=== PATIENT | male | born 1975 | race Caucasian/White ===

== ENCOUNTER 2017-11-07 08:38 | Emergency (ER) | payer MEDICARE, OTHER ==
[~2017-11-07] VITALS: Ht 175.3 cm; Wt 76.2 kg
--- NOTE | 2017-11-07 08:45 | NUR ---
[id number]: SOB, ASTHMA EXACERBATION. ALBUTROL x 1 GIVEN IN FIELD WITH HELP. AAOX3 AND ABLE TO SPEAK 4-5 WORD SENTENCES. PT STATES HE RAN OUT OF HIS NEBULIZER LAST NIGHT. SPO2 87% ON ROOM AIR, RT CALLED FOR BREATHING TREATMENT. MD AT BEDSIDE. NAD NOTED AT THIS TIME. PT PLACED ON MONITOR AND WILL CONTINUOUSLY MONITOR.
[2017-11-07] MEDS ORDERED: methylPREDNISolone SOD SUCC 125 MG/2ML VIAL ONE (08:52)
[2017-11-07] MEDS ORDERED: ALBUTEROL FS 2.5 MG/0.5 ML VIAL.NEB ONE (08:55)
[2017-11-07] MEDS ORDERED: IPRATROPIUM NEB FS 0.5 MG/2.5 ML AMPUL.NEB NEB ONE ×2 (09:00→09:30)
[2017-11-07] MEDS ORDERED: methylPREDNISolone SOD SUCC 125 MG/2ML VIAL IV ONE (09:00)
[2017-11-07] MEDS ORDERED: ALBUTEROL FS 2.5 MG/3 ML VIAL.NEB CONTNEB ONE (09:00)
[2017-11-07] MEDS ORDERED: IPRATROPIUM NEB FS 0.5 MG/2.5 ML AMPUL.NEB ONE (09:08)
[2017-11-07] MEDS ORDERED: ALBUTEROL FS 2.5 MG/3 ML VIAL.NEB ONE (09:08)
[2017-11-07 09:13] LABS: BASOPHILS # (AUTO) 0.1 /CMM (0.0-0.2); BASOPHILS % (AUTO) 0.6 % (0.0-2.0); EOSINOPHILS # (AUTO) 0.4 /CMM (0.0-0.7); HEMATOCRIT 49 % (39-51); HEMOGLOBIN 16.5 g/dL (13.5-17.5); LYMPHOCYTES # (AUTO) 1.7 /CMM (0.8-4.8); LYMPHOCYTES % (AUTO) 18.9 % (20.0-44.0); MEAN CORPUSCULAR HEMOGLOBIN 32 PG (26.0-33.0); MEAN CORPUSCULAR HGB CONC 34 g/dl (31.0-36.0); MEAN CORPUSCULAR VOLUME 94 fL (80-96); MONOCYTES # (AUTO) 0.7 /CMM (0.1-1.30); MONOCYTES % (AUTO) 7.3 % (2.0-12.0); NEUTROPHILS # (AUTO) 6.3 /CMM (1.8-8.9); NEUTROPHILS % (AUTO) 69.2 % (43.0-81.0); PLATELET COUNT (AUTO) 172 /CMM (150-450); RDW COEFFICIENT OF VARIATION 14.2 (11.5-15.0); RED BLOOD CELL COUNT(AUTO) 5.17 MIL/uL (4.5-6.0); WHITE BLOOD COUNT (AUTO) 9.1 K/uL (4.3-11.0)
[2017-11-07 09:28] LABS: CREATININE 0.7 mg/dL (0.6-1.3); POTASSIUM 3.8 mmol/L (3.5-5.1)
[2017-11-07 09:38] LABS: ALBUMIN 4.2 g/dL (3.4-5.0); BILIRUBIN,DIRECT 0.1 mg/dL (0.0-0.2); BILIRUBIN,TOTAL 0.5 mg/dL (0.2-1.0); TOTAL PROTEIN, SERUM 7.8 g/dL (6.4-8.2)
--- NOTE | 2017-11-07 10:10 | NUR ---
PHYSICIAN CODER BEDSIDE WITH PT.
--- NOTE | 2017-11-07 10:24 | NUR ---
SPOKE WITH SRINI FROM CASE MANAGEMENT, PT WILL BE RECEIVING A NEBULIZER SHIPPED TO HIS RESIDENCE VIA THE VENDOR.
--- NOTE | 2017-11-07 10:35 | NUR ---
IV removed. Catheter intact and site benign. Pressure and 4x4 applied to site. No bleeding noted.Patient discharged to home in stable condition. Written and verbal after care instructions given. Patient verbalizes understanding of instruction.
[2017-11-07 10:36] VITALS: BP 118/82
== END 2017-11-07 10:38 | disposition home or self-care (01) ==
LOC: ER 08:43
DX: J45.901 Unspecified asthma with (acute) exacerbation (principal); K21.9 Gastro-esophageal reflux disease without esophagitis; M79.7 Fibromyalgia; Z88.8 Allergy status to other drugs, medicaments and biological substances
CPT/HCPCS: 36415; 71045; 80048; 80076; 85025; 94644; 96374; 99285; A4606; J2930; Z7610

== ENCOUNTER 2017-11-20 19:44 | Inpatient (IN) | payer OTHER ==
[~2017-11-20] VITALS: Ht 177.8 cm; Wt 76.0 kg
[2017-11-20] MEDS ORDERED: Magnesium 1GM/D5W 100ML PREMIX 200 ML IV ONE ×2 (20:22→20:30)
[2017-11-20] MEDS ORDERED: methylPREDNISolone SOD SUCC 125 MG/2ML VIAL ONE (20:22)
[2017-11-20] MEDS ORDERED: ALBUTEROL FS 2.5 MG/3 ML VIAL.NEB ONE (20:23)
[2017-11-20] MEDS ORDERED: IPRATROPIUM NEB FS 0.5 MG/2.5 ML AMPUL.NEB ONE (20:23)
[2017-11-20] MEDS ORDERED: methylPREDNISolone SOD SUCC 125 MG/2ML VIAL IV ONE (20:30)
[2017-11-20] MEDS ORDERED: ALBUTEROL FS 2.5 MG/3 ML VIAL.NEB CONTNEB ONE (20:30)
[2017-11-20] MEDS ORDERED: IPRATROPIUM NEB FS 0.5 MG/2.5 ML AMPUL.NEB NEB ONE (20:30)
--- NOTE | 2017-11-20 20:30 | NUR ---
PT CAME IN SOB EPISODE, NOTED ANXIOUS. MANAGER [employer] AT BS FOR EVAL. IV ACCESS STARTED. BLOOD DRAWN FOR LABS. MEDICATED ORDERED. SAFETY AND COMFORT MEASURES. PROVIDED. WILL MONITOR.
--- NOTE | 2017-11-20 23:04 | NUR ---
REPORT GIVEN TO VENUS/ELE ON BEHALF OF PRIMARY NURSE TATA.
[2017-11-20] MEDS ORDERED: ACETAMINOPHEN 325 MG TABLET PO PRN (23:30)
[2017-11-20] MEDS ORDERED: ONDANSETRON HCL/PF 4 MG/2 ML VIAL IVP PRN (23:30)
--- NOTE | 2017-11-20 23:40 | NUR ---
CASTING AND LOCKER ROOM SERVICER ADMIN NOTE PT ARRIVED TO FLOOR FROM ER VIA WHEELCHAIR, ABLE TO AMBULATE TO BED. PT HAS CANE ASSISTIVE DEVICE. PT IS A/O X3 ABLE TO MAKE NEEDS KNOWN. NO SIGNS OF SOB OR DISTRESS, BREATHING EVENLY AND UNLABORED ON RA. PT DENIES PAIN AT THIS TIME. DENIES ANY SOB. WHEEZES IN LOWER LOBES NOTED. TELE MONITOR SHOWS SR 96. IV ACCESS IS INTACT AND PATENT. NO LABS WERE DRAWN IN ER, ABG TO BE DRAWN ON THE FLOOR. BED IS IN LOW AND LOCKED POSITION, CALL LIGHT WITHIN REACH. WILL CONTINUE TO MONITOR PT.
[2017-11-20] MEDS: GUAIFENESIN LA 600 MG TABLET.SA PO SCH (23:53)
[2017-11-20] MEDS: PANTOPRAZOLE 40 MG TABLET.DR PO SCH (23:53)
[2017-11-20] MEDS: methylPREDNISolone SOD SUCC 125 MG/2ML VIAL IV SCH (23:54)
[2017-11-21] MEDS: ALBUTEROL FS 2.5 MG/0.5 ML VIAL.NEB NEB SCH ×5 (00:09→19:29)
[2017-11-21] MEDS: IPRATROPIUM NEB FS 0.5 MG/2.5 ML AMPUL.NEB NEB SCH ×5 (00:09→19:29)
[2017-11-21 00:23] LABS: ABG BASE EXCESS -1.2 mmol/L; ABG OXYGEN SATURATION 93.3 % (92.0-98.5); ABG PCO2 38.5 mmHg (35.0-45.0); ABG PH 7.399 (7.350-7.450); ABG PO2 69.6 mmHg (75.0-100.0); COHb 0.6 % (0.5-1.5); MetHb 0.6 % (0.0-1.5); O2Hb 92.2 % (94.0-97.0); SITE, ABG Right Radial; VENT MODE, BG ROOM AIR
[2017-11-21 00:31] VITALS: BP 111/64
--- NOTE | 2017-11-21 03:08 | NUR ---
0130 BREATHING TX NOT GIVEN AT THIS TIME. TOO CLOSE IN TIME WITH PREVIOUS HHN TX THAT WAS GIVEN AT 0017. RN NOTIFIED.
[2017-11-21 04:00] VITALS: BP 119/70
--- NOTE | 2017-11-21 06:36 | NUR ---
PT REQUESTING BREATHING TREATMENT, RT WAS CALLED. HOB WAS ELEVATED. WILL CONTINUE TO MONITOR PT
--- NOTE | 2017-11-21 06:37 | NUR ---
PACKER AND CARRY OUT CLOSING NOTES PT IS IN BED AWAKE AND ALERT, ABLE TO MAKE NEEDS KNOWN. STARTING TO FEEL A LITTLE SHORT OF BREATH, RT WAS CALLED. TELE MONITOR SHOWING SR 80. NO ACUTE CHANGES THROUGHOUT THE SHIFT. ALL NEEDS WERE ANTICIPATED AND MET. BED IS IN LOW AND LOCKED POSITION, CALL LIGHT WITHIN REACH. WILL ENDORSE TO DAYSHIFT
--- NOTE | 2017-11-21 07:00 | NUR ---
RN NOTES: PATIENT RESTING IN BED. NONLABORED BREATHING ON ROOM AIR. NO SIGNS OF DISTRESS NOTED, SPO2 WNL. PATIENT DENIES PAIN. IV SITE GAUGE 20 ON LEFT ARM PATENT AND INTACT. PATIENT ON TELE MONITORING WITH SINUS RHYTHM WITH HEART RATE 80. BED IN LOWEST LOCKED POSITION.CALL LIGHT WITHIN REACH. ENDORSED TO NEXT SHIFT
[2017-11-21 07:48] LABS: HEMATOCRIT 43 % (39-51); HEMOGLOBIN 14.8 g/dL (13.5-17.5); LYMPHOCYTES # (AUTO) 0.4 /CMM (0.8-4.8); LYMPHOCYTES % (AUTO) 6.1 % (20.0-44.0); MEAN CORPUSCULAR HEMOGLOBIN 33 PG (26.0-33.0); MEAN CORPUSCULAR HGB CONC 34 g/dl (31.0-36.0); MEAN CORPUSCULAR VOLUME 95 fL (80-96); MONOCYTES % (AUTO) 0.5 % (2.0-12.0); NEUTROPHILS % (AUTO) 93.4 % (43.0-81.0); PLATELET COUNT (AUTO) 149 /CMM (150-450); RDW COEFFICIENT OF VARIATION 14.3 (11.5-15.0); RED BLOOD CELL COUNT(AUTO) 4.55 MIL/uL (4.5-6.0); WHITE BLOOD COUNT (AUTO) 6.5 K/uL (4.3-11.0)
[2017-11-21 08:00] VITALS: BP 113/60
[2017-11-21] MEDS: GUAIFENESIN LA 600 MG TABLET.SA PO SCH ×2 (08:33→21:53)
[2017-11-21] MEDS: PANTOPRAZOLE 40 MG TABLET.DR PO SCH (08:33)
[2017-11-21] MEDS: methylPREDNISolone SOD SUCC 125 MG/2ML VIAL IV SCH ×3 (08:35→17:05)
[2017-11-21] MEDS ORDERED: ALBU2.5V38 IH (08:47)
[2017-11-21] MEDS ORDERED: OMEP20TA20 PO (08:47)
[2017-11-21] MEDS ORDERED: ALBU8.5H8 IH (08:47)
[2017-11-21] MEDS ORDERED: AMPH15TA2 PO (08:47)
[2017-11-21 08:53] LABS: ALBUMIN 3.2 g/dL (3.4-5.0); BILIRUBIN,TOTAL 0.4 mg/dL (0.2-1.0); CALCIUM, SERUM 8.8 mg/dL (8.5-10.1); CREATININE 0.8 mg/dL (0.6-1.3); POTASSIUM 4.5 mmol/L (3.5-5.1); TOTAL PROTEIN, SERUM 6.5 g/dL (6.4-8.2)
[2017-11-21 16:00] VITALS: BP 121/74
--- NOTE | 2017-11-21 19:00 | NUR ---
RN NOTES: PATIENT RESTING IN BED. NONLABORED BREATHING ON ROOM AIR. NO SIGNS OF DISTRESS NOTED. PATIENT DENIES PAIN. IV SITE GAUGE 20 ON LEFT ARM PATENT AND INTACT. DURING SHIFT, PATIENT KEPT CLEAN AND DRY. ENCOURAGED TO TURN AND REPOSITION EVERY 2 HOURS, ENCOURAGED TO INCREASE ACTIVITY. HOWEVER, REFUSED AND STATED THAT HE WANTED TO REST. BED IN LOWEST LOCKED POSITION.CALL LIGHT WITHIN REACH. ENDORSED TO NEXT SHIFT
--- NOTE | 2017-11-21 19:00 | NUR ---
MS RN NOTE: PATIENT RESTING IN BED, A/OX4. STABLE, NO ACUTE DISTRESS NOTED. BREATHING EVEN AND UNLABORED, NO SOB NOTED. BED LOCKED AND IN LOWEST POSITION, CALL LIGHT IN REACH. WILL CONTINUE TO MONITOR.
[2017-11-21 20:00] VITALS: BP 122/70
--- NOTE | 2017-11-21 22:09 | NUR ---
MS RN NOTES SPOKE TO DR. SPENCER GOODMAN PT REQUESTING FOR AMBIEN 5 MG PO 1 TAB HS, David AGREED TO GIVE, MMary Ellen ORDERED AMBIEN 5 MG 1 TAB PO HS PRN NOTED AND CARRIED OUT REPEAT BACK AND VERIFIED
--- NOTE | 2017-11-21 22:20 | NUR ---
PT SLEEPING ALREADY, UNABLE TO GIVE AMBIEN
[2017-11-21] MEDS ORDERED: ZOLPIDEM TARTRATE 5 MG TABLET PO PRN (22:30)
[2017-11-22] MEDS: IPRATROPIUM NEB FS 0.5 MG/2.5 ML AMPUL.NEB NEB SCH ×2 (01:30→07:09)
[2017-11-22] MEDS: ALBUTEROL FS 2.5 MG/0.5 ML VIAL.NEB NEB SCH ×2 (01:30→07:09)
--- NOTE | 2017-11-22 06:18 | NUR ---
MS RN CLOSING NOTES PT COMFORTABLY ASLEEP AND EASILY AWAKEN, ON 02 2LPM 02 SAT 95% HOB ELEVATED AT ALL TIMES. IN STABLE CONDITION. NOT IN FORM OF DISTRESS, RESPIRATION EVEN AND UNLABORED. KEPT CLEAN AND DRY AND COMFORTABLE, ALL NURSING CARE RENDERED. NEEDS ATTENDED AND ANTICIPATED, FREQUENT VISUAL CHECK DONE FOR SAFETY EVERY 2 HOURS. NO COMPLAINS OF PAIN. ON LOW BED AT ALL TIMES TO ENSURE SAFETY. SAFE HAZARD FREE ENVIRONMENT PROVIDED. CALL LIGHT WITHIN EASY TO REACH. WILL ENDORSE NEXT SHIFT CONTINUITY OF CARE
--- NOTE | 2017-11-22 07:22 | NUR ---
RN OPENING NOTES RECEIVED PATIENT IN BED RESTING, A/OX3. NO ACUTE DISTRESS, NO SOB NOTED. DENIES PAIN AND DISCOMFORT AT THIS TIME. IV SITE INTACT AND PATENT. KEPT PATIENT COMFORTABLE IN BED. BED IN LOW/LOCKED POSITION, SIDERAILS UPX2, CALL LIGHT IN REACH. WILL CONTINUE TO MONITOR ACCORDINGLY.
[2017-11-22 08:00] VITALS: BP 122/78
[2017-11-22] MEDS ORDERED: FLUTICASONE/VILANTEROL 1 EACH BLST.W.DEV IH SCH (09:00)
[2017-11-22] MEDS: GUAIFENESIN LA 600 MG TABLET.SA PO SCH (09:45)
[2017-11-22] MEDS: PANTOPRAZOLE 40 MG TABLET.DR PO SCH (09:45)
[2017-11-22] MEDS: methylPREDNISolone SOD SUCC 125 MG/2ML VIAL IV SCH (09:45)
--- NOTE | 2017-11-22 12:59 | NUR ---
QUALITY ANALYST NOTES DISCHARGE PATIENT IN STABLE CONDITION ACCOMPANIED BY MAXIMINO MCCALL, PATIENT WANTS TO WAIT IN THE LOBBY FOR HIS FRIEND FOR LEAFLET OR NEWSPAPER DELIVERER. DISCHARGE INSTRUCTIONS GIVEN, VERBALIZED UNDERSTANDING, PAPERWORK AND MED PRESCRIPTION GIVEN TO PATIENT. ALL BELONGINGS RETURNED, FORM SIGNED. D/C IV SITE, APPLIED PRESSURE, NO BLEEDING, NO COMPLICATIONS. REMOVED [place].
== END 2017-11-22 12:52 | disposition home or self-care (01) | DRG 189 ==
LOC: ER 19:51 → TELE 23:18 → MED 11-21 09:34
PROVIDERS: ADMIT Internal Medicine; ATTEND Internal Medicine
DX: J96.01 Acute respiratory failure with hypoxia (principal); J45.901 Unspecified asthma with (acute) exacerbation; K21.9 Gastro-esophageal reflux disease without esophagitis; Z87.11 Personal history of peptic ulcer disease; M79.7 Fibromyalgia; Z88.8 Allergy status to other drugs, medicaments and biological substances
CPT/HCPCS: 36415; 36600; 80053-TC; 82803-TC; 85025-TC; 94799-TC; A4606; J2930; J3475; Z7610

== ENCOUNTER 2018-03-02 19:00 | Emergency (ER) | payer OTHER ==
[~2018-03-02] VITALS: Ht 182.9 cm; Wt 77.1 kg
[~2018-03-02 19:00] MED LIST: ALBU2.5V38 IH; ALBU8.5H8 IH; AMPH15TA2 PO; OMEP20TA20 PO
--- NOTE | 2018-03-02 19:25 | NUR ---
PT BB SELF FROM HOME C/O ABD PAIN SINCE SATURDAY. PT STATES PAIN IS SHARP 10/10 LOCATED ON THE LEFT LOWER SIDE, NON RADIATING. PT ALSO STATES BURNING SENSATION WHILE URINATING. PT IS AAOX4. SKIN WNL. RESP EVEN AND UNLABORED. VSS. NO S/S OF ACUTE DISTRESS NOTED. PT PLACED ONMONITOR AND POX. AWAITING MD FOR EVAL.
[2018-03-02] MEDS ORDERED: KETOROLAC TROMETHAMINE INJ 30 MG/ML VIAL IV ONE (19:30)
[2018-03-02] MEDS ORDERED: IV NS 0.9% 1,000 ML BAG IV ONE (19:30)
[2018-03-02] MEDS ORDERED: KETOROLAC TROMETHAMINE INJ 30 MG/ML VIAL ONE (19:44)
--- NOTE | 2018-03-02 19:52 | NUR ---
PT TO CT
--- NOTE | 2018-03-02 20:03 | NUR ---
PT BACK FROM CT
[2018-03-02 20:09] LABS: BASOPHILS % (AUTO) 0.4 % (0.0-2.0); EOSINOPHILS % (AUTO) 2.1 % (0.0-6.0); HEMATOCRIT 54 % (39-51); HEMOGLOBIN 18.3 g/dL (13.5-17.5); LYMPHOCYTES % (AUTO) 20.9 % (20.0-44.0); MEAN CORPUSCULAR HGB CONC 34 g/dl (31.0-36.0); MEAN CORPUSCULAR VOLUME 97 fL (80-96); MONOCYTES # (AUTO) 0.8 /CMM (0.1-1.30); NEUTROPHILS # (AUTO) 6.4 /CMM (1.8-8.9); NEUTROPHILS % (AUTO) 68.6 % (43.0-81.0); PLATELET COUNT (AUTO) 153 /CMM (150-450); RDW COEFFICIENT OF VARIATION 14.3 (11.5-15.0); RED BLOOD CELL COUNT(AUTO) 5.55 MIL/uL (4.5-6.0); WHITE BLOOD COUNT (AUTO) 9.4 K/uL (4.3-11.0)
[2018-03-02 20:09] LABS: APPEARANCE,URINE CLEAR (CLEAR); BILIRUBIN,URINE NEGATIVE (NEGATIVE); BLOOD, URINE NEGATIVE Ery/uL (NEGATIVE); COLOR,URINE YELLOW (YELLOW); KETONES,URINE TRACE (NEGATIVE); LEUKOCYTE ESTERASE ,URINE NEGATIVE (NEGATIVE); NITRITE, URINE NEGATIVE (NEGATIVE); PROTEIN,URINE NEGATIVE (NEGATIVE); UGLUCOSE NEGATIVE (NEGATIVE); UROBILINOGEN,URINE 0.2 EU/dL (0.2)
[2018-03-02 20:17] LABS: CALCIUM, SERUM 8.4 mg/dL (8.5-10.1); POTASSIUM 3.5 mmol/L (3.5-5.1)
[2018-03-02 20:24] LABS: ALBUMIN 3.3 g/dL (3.4-5.0); BILIRUBIN,DIRECT 0.1 mg/dL (0.0-0.2); BILIRUBIN,TOTAL 0.7 mg/dL (0.2-1.0); TOTAL PROTEIN, SERUM 5.8 g/dL (6.4-8.2)
[2018-03-02 20:34] LABS: BACTERIA,URINE None seen /HPF (None Seen); RBC,URINE 0-2 /HPF (0-2); SQUAMOUS EPITHELIAL CELL,UR 0-2 /HPF (None Seen); WBC,URINE 0-2 /HPF (0-3)
[2018-03-02 20:44] LABS: EOSINOPHILS % (MANUAL) 1 % (0-4); LYMPHOCYTES % (MANUAL) 23 % (16-48); MONOCYTES % (MANUAL) 4 % (0-11.0); NEUTROPHILS % (MANUAL) 70 (42-76); REACTIVE LYMPHOCYTES 2 % (0-0)
--- NOTE | 2018-03-02 21:58 | NUR ---
Patient discharged to home in stable condition. Written and verbal after care instructions along with RX given. Patient verbalizes understanding of instruction.IV removed. Catheter intact and site benign. Pressure and 4x4 applied to site. No bleeding noted. VSS upon discharge.
[2018-03-02 21:59] VITALS: BP 127/79
== END 2018-03-02 22:00 | disposition home or self-care (01) ==
LOC: ER 19:01
DX: R10.12 Left upper quadrant pain (principal); R10.32 Left lower quadrant pain; J45.909 Unspecified asthma, uncomplicated; M79.7 Fibromyalgia; Z88.8 Allergy status to other drugs, medicaments and biological substances
CPT/HCPCS: 36415; 80048-TC; 80076-TC; 81000-TC; 83690-TC; 85025-TC; A4606; J1885; J7030; Z7610

== ENCOUNTER 2018-12-03 16:24 | Emergency (ER) | payer OTHER ==
[~2018-12-03] VITALS: Ht 180.3 cm; Wt 85.7 kg
[2018-12-03 16:24] VITALS: BP 139/97
--- NOTE | 2018-12-03 17:06 | NUR ---
Patient discharged to [facility] ([id number]) IN CUSTODY in stable condition. Written and verbal after care instructions given. Patient AND [employer] verbalized understanding of instruction.
== END 2018-12-03 17:08 ==
LOC: ER 16:24
DX: F41.1 Generalized anxiety disorder (principal); J45.909 Unspecified asthma, uncomplicated; M79.7 Fibromyalgia; Z88.5 Allergy status to narcotic agent; Z60.2 Problems related to living alone

== ENCOUNTER 2018-12-06 21:06 | Emergency (ER) | payer OTHER ==
[~2018-12-06] VITALS: Ht 185.4 cm; Wt 81.6 kg
--- NOTE | 2018-12-06 21:21 | NUR ---
PT BIBSELF FROM HOME FOR CP X SATURDAY, PT AAXO4, PT ON MONITOR, VSS, NAD NOTED, PENDING ER PROVIDER ELPIDIO
[2018-12-06 22:06] LABS: BASOPHILS # (AUTO) 0.1 /CMM (0.0-0.2); BASOPHILS % (AUTO) 0.7 % (0.0-2.0); EOSINOPHILS % (AUTO) 1.9 % (0.0-6.0); HEMATOCRIT 50 % (39-51); HEMOGLOBIN 17.1 g/dL (13.5-17.5); LYMPHOCYTES # (AUTO) 1.8 /CMM (0.8-4.8); LYMPHOCYTES % (AUTO) 23.2 % (20.0-44.0); MEAN CORPUSCULAR HGB CONC 34 g/dl (31.0-36.0); MEAN CORPUSCULAR VOLUME 102 fL (80-96); MONOCYTES % (AUTO) 12.1 % (2.0-12.0); NEUTROPHILS # (AUTO) 4.9 /CMM (1.8-8.9); NEUTROPHILS % (AUTO) 62.1 % (43.0-81.0); PLATELET COUNT (AUTO) 172 /CMM (150-450); RED BLOOD CELL COUNT(AUTO) 4.94 MIL/uL (4.5-6.0); WHITE BLOOD COUNT (AUTO) 7.8 K/uL (4.3-11.0)
[2018-12-06 22:14] VITALS: BP 115/85
[2018-12-06 22:16] LABS: CALCIUM, SERUM 9.4 mg/dL (8.5-10.1); CARBON DIOXIDE 32 mmol/L (21-32); CHLORIDE 103 mmol/L (98-107); CREATININE 0.9 mg/dL (0.6-1.3); GLUCOSE 111 mg/dL (74-106); POTASSIUM 4.1 mmol/L (3.5-5.1); SODIUM SERUM 140 mmol/L (136-145); UREA NITROGEN, BLOOD 9 mg/dL (7-18)
--- NOTE | 2018-12-07 00:03 | NUR ---
Patient discharged to home in stable condition. Written and verbal after care instructions given. Patient verbalizes understanding of instruction. IV removed. Catheter intact and site benign. Pressure and 4x4 applied to site. No bleeding noted.
== END 2018-12-07 00:04 | disposition home or self-care (01) ==
LOC: ER 21:17
DX: S20.219A Contusion of unspecified front wall of thorax, initial encounter (principal); M94.0 Chondrocostal junction syndrome [Tietze]; F41.9 Anxiety disorder, unspecified; J45.909 Unspecified asthma, uncomplicated; M79.7 Fibromyalgia; Z88.5 Allergy status to narcotic agent; Z60.2 Problems related to living alone; X58.XXXA Exposure to other specified factors, initial encounter; Y93.89 Activity, other specified; Y92.89 Other specified places as the place of occurrence of the external cause; Y99.8 Other external cause status
CPT/HCPCS: 36415; 71045; 80048; 84484; 85025; 85730; 93005; 99284; A4606